=== PATIENT | female | born 1975 | race African-American/Black ===

== ENCOUNTER 2018-04-24 14:20 | Inpatient (IN) | END 2018-04-26 16:30 | disposition home or self-care (01) | DRG 282 ==

== ENCOUNTER 2018-08-12 12:11 | Observation (INO) | END 2018-08-13 16:50 | disposition home or self-care (01) ==

== ENCOUNTER 2019-01-10 09:13 | Emergency (ER) | payer OTHER ==
[~2019-01-10] VITALS: Ht 165.1 cm; Wt 61.4 kg
[~2019-01-10 09:13] MED LIST: ALPR1TAB7 PO; ARIP15TA3 PO; ASPI-817 PO; ISOS30TA67 PO; OXYC-279 PO; TRAZ150T65 PO
[2019-01-10 09:15] VITALS: Ht 165.1 cm; Wt 61.4 kg
[2019-01-10] MEDS ORDERED: NITROGLYCERIN 2% 1 GM OINT PKT TD STA (09:30)
[2019-01-10] MEDS ORDERED: ASPIRIN 81 MG TAB PO STA (09:30)
[2019-01-10] MEDS ORDERED: LORAZEPAM 2 MG INJ IV STA (09:30)
[2019-01-10] MEDS ORDERED: NITROGLYCERIN (SL) 0.4 MG TAB SL PRN (09:30)
[2019-01-10] MEDS ORDERED: morphine 4 MG/ML VIAL IV STA (10:21)
[2019-01-10] MEDS ORDERED: NITR-58 PO (10:53)
[2019-01-10] MEDS ORDERED: IBUP-1542 PO (10:53)
--- NOTE | 2019-01-10 10:56 | ERD ---
ER Documentation Chief Complaint Chief Complaint BIB RESCUE. SHARP CHEST PAIN RADIATING L ARM+ LLQ ABDOMINAL PAIN SINCE AM. HPI Patient is a 43-year-old female with coronary disease who presents with chest pain and abdominal pain. The patient was brought in by ambulance. She said that she had a transfusion 11 days ago. She is complaining of yellowish discharge from the vagina. She just had a cyst and fibroid removal while she was admitted. She denies being sexually active at this time. She said that she has had light vaginal bleeding. She does have a primary doctor but does not remember the name of the buttoner. ROS All systems reviewed and are negative except as per history of present illness. Medications Home Meds Active Scripts Nitrofurantoin Monohyd Macrocr* (Macrobid*) 100 Mg Capsr, 100 MG PO BID for 7 Days, CAP Prov:ROSA M DAVIS MD 01/10/19 Ibuprofen* (Motrin*) 600 Mg Tab, 600 MG PO Q6H PRN for PAIN AND OR ELEVATED TEMP, #30 TAB Prov:ROSA M DAVIS MD 01/10/19 Oxycodone HCl/Acetaminophen (Percocet 5-325 mg Tablet) 1 Each Tablet, 1 EACH PO Q6 for 5 Days, #20 TAB Prov:MIGUEL PAYNE MD 12/20/18 Aspirin* (Aspirin* EC) 81 Mg Tablet.dr, 81 MG PO DAILY for 90 Days, #90 TAB 4 Refills Prov:LANDON RUSSO MD 04/26/18 Reported Medications Isosorbide Mononitrate* (Isosorbide Mononitrate*) 30 Mg Tab.er.24h, 30 MG PO DAILY 12/19/18 Alprazolam* (Alprazolam*) 1 Mg Tablet, 1 MG PO DAILY PRN for ANXIETY, TAB 12/19/18 Aripiprazole* (Abilify*) 15 Mg Tablet, 15 MG PO DAILY, #30 TAB 04/24/18 Trazodone Hcl* (Trazodone Hcl*) 150 Mg Tablet, 250 MG PO QHS, #30 TAB 04/24/18 Allergies Allergies: Coded Allergies: Penicillins (Verified Allergy, Intermediate, 01/10/19) PMhx/Soc History of Surgery: Yes (GALLBLADDER REMOVED, 2015, APPENDECTOMY 2015, FIBROID REMOVED 2014) Anesthesia Reaction: No Hx Neurological Disorder: No Hx Respiratory Disorders: Yes (ASTHMA) Hx Cardiac Disorders: Yes (HTN, HX OF HEART ATTACK 04/2018) Hx Psychiatric Problems: Yes (BIPOLAR, ANXIETY, PTSD, DEPRESSION) Hx Miscellaneous Medical Probl: Yes (ENDOMETRIOSIS) Hx Alcohol Use: Yes (OCCASIONALLY) Hx Substance Use: No Hx Tobacco Use: Yes (OCCASIONAL) Smoking Status: Former smoker FmHx Family History: diabetes Physical Exam Vitals Vital Signs Date Temp Pulse Resp B/P (MAP) Pulse Ox O2 O2 Flow FiO2 Time Delivery Rate 01/10/19 72 18 98/70 (79) 100 Room Air 10:38 01/10/19 70 18 104/70 100 Room Air 10:00 (81) 01/10/19 68 18 122/74 100 Room Air 09:20 (90) 01/10/19 98.3 76 18 122/74 100 09:15 (90) Physical Exam Const: Moderate distress secondary to pain Head: Atraumatic Eyes: Normal Conjunctiva ENT: Normal External Ears, Nose and Mouth. Neck: Full range of motion. No meningismus. Resp: Clear to auscultation bilaterally Cardio: Regular rate and rhythm, no murmurs Abd: Soft, diffuse tenderness to palpation without rebound or guarding Back: No midline or flank tenderness Ext: No cyanosis, or edema Neur: Awake and alert Psych: Normal Mood and Affect Result Diagram: 01/10/1993801/10/19 0939 Results 24 hrs Laboratory Tests Test 01/10/19 09:39 01/10/19 10:00 White Blood Count 7.1 10^3/ul Red Blood Count 4.33 10^6/ul Hemoglobin 9.8 g/dl Hematocrit 33.6 % Mean Corpuscular Volume 77.6 fl Mean Corpuscular Hemoglobin 22.6 pg Mean Corpuscular Hemoglobin Concent 29.2 g/dl Red Cell Distribution Width 21.3 % Platelet Count 333 10^3/UL Mean Platelet Volume 10.1 fl Immature Granulocytes % 0.700 % Neutrophils % 62.9 % Lymphocytes % 23.4 % Monocytes % 9.9 % Eosinophils % 2.5 % Basophils % 0.6 % Nucleated Red Blood Cells % 0.0 /100WBC Immature Granulocytes # 0.050 10^3/ul Neutrophils # 4.5 10^3/ul Lymphocytes # 1.7 10^3/ul Monocytes # 0.7 10^3/ul Eosinophils # 0.2 10^3/ul Basophils # 0.0 10^3/ul Nucleated Red Blood Cells # 0.0 10^3/ul Sodium Level 137 mmol/L Potassium Level 4.4 mmol/L Chloride Level 106 mmol/L Carbon Dioxide Level 20 mmol/L Anion Gap 11 Blood Urea Nitrogen 12 mg/dl Creatinine 0.68 mg/dl Est Glomerular Filtrat Rate mL/min > 60 mL/min Glucose Level 83 mg/dl Calcium Level 9.3 mg/dl Total Bilirubin 0.3 mg/dl Direct Bilirubin 0.00 mg/dl Indirect Bilirubin 0.3 mg/dl Aspartate Amino Transf (AST/SGOT) 26 IU/L Alanine Aminotransferase (ALT/SGPT) 33 IU/L Alkaline Phosphatase 95 IU/L Troponin I < 0.012 ng/ml Total Protein 7.9 g/dl Albumin 4.3 g/dl Globulin 3.60 g/dl Albumin/Globulin Ratio 1.19 Urine Color YELLOW Urine Clarity SLIGHTLY CLOUDY Urine pH 7.0 Urine Specific [place] 1.010 Urine Ketones NEGATIVE mg/dL Urine Nitrite NEGATIVE mg/dL Urine Bilirubin NEGATIVE mg/dL Urine Urobilinogen NEGATIVE mg/dL Urine Leukocyte Esterase TRACE Clare/ul Urine Microscopic RBC 4 /HPF Urine Microscopic WBC 7 /HPF Urine Squamous Epithelial Cells FEW /HPF Urine Bacteria FEW /HPF Urine Hemoglobin 3+ mg/dL Urine Glucose NEGATIVE mg/dL Urine Total Protein NEGATIVE mg/dl Current Medications Medications Dose Sig/Ji Start Time Status Last (Trade) Ordered Route PRN Stop Time Admin Dose Reason Admin Aspirin 162 mg ONCE STAT 01/10/19 DC 01/10/19 (Aspirin) PO 09:30 09:45 01/10/19 09:32 1 inch ONCE STAT 01/10/19 DC 01/10/19 Nitroglycerin TD 09:30 09:51 01/10/19 09:32 (Nitroglyceri n 2% Oint) 1 tab Q5M UP TO 3 01/10/19 01/10/19 Nitroglycerin DOSES PRN 09:30 09:50 SL .CHEST (Nitroglyceri PAIN n (Sl Tab) 0.4 Mg) Lorazepam 1 mg ONCE STAT 01/10/19 DC 01/10/19 (Ativan) IV 09:30 09:57 01/10/19 09:32 Morphine 4 mg ONCE STAT 01/10/19 DC 01/10/19 Sulfate IV 10:21 10:33 (morphine) 01/10/19 10:22 25 mg ONCE ONCE 01/10/19 DC 01/10/19 Diphenhydrami IV 11:00 10:45 ne HCl 01/10/19 11:01 (Benadryl) Ketorolac 30 mg ONCE STAT 01/10/19 DC 01/10/19 Tromethamine IV 11:10 11:31 (Toradol) 01/10/19 11:11 Procedures/MDM EKG read by me: Rate/Rhythm: Regular rate and rhythm at a rate of 81 Intervals: Normal Impression: No evidence of ischemia or arrhythmia Chest x-ray negative per radiology. Patient is a 43-year-old female who presents with chest pain and abdominal pain. Laboratory studies show mild anemia with a hemoglobin of 9.8 but she does not need transfusion. Other laboratory studies are basically negative. Troponin is negative. Chest x-ray shows no sign of pneumonia or pneumothorax. At this point I doubt acute coronary syndrome, pneumonia, pneumothorax, pulmonary embolism, or aortic dissection. I doubt serious intra-abdominal process as well. The patient is requesting Dilaudid at this time and I believe there may be some drug-seeking behavior. She has mild cystitis will be treated with Macrobid. She will be discharged with ibuprofen for pain. She can return for any worsening symptoms. She should follow-up with her primary doctor within 24- 48 hours for reevaluation. Departure Diagnosis: Primary Impression: Cystitis Additional Impressions: Anemia Anemia type: unspecified type Qualified Codes: D64.9 - Anemia, unspecified Chest pain Chest pain type: unspecified Qualified Codes: R07.9 - Chest pain, unspecified Condition: Fair Patient Instructions: Anemia, Cystitis, Chest Pain, Uncertain Cause Referrals: Your doctor Additional Instructions: Call your primary care doctor TOMORROW for an appointment during the next 1-2 days.See the doctor sooner or return here if your condition worsens before your appointment time. ROSA M DAVIS MD Jan 10, 2019 10:56
[2019-01-10] MEDS ORDERED: DIPHENHYDRAMINE 50 MG INJ IV ONE (11:00)
[2019-01-10] MEDS ORDERED: KETOROLAC 30 MG INJ IV STA (11:10)
[2019-01-10 11:30] VITALS: BP 102/75; PULSE 69; RESP 18
== END 2019-01-10 12:07 | disposition home or self-care (01) ==
LOC: E/R 09:13
DX: N30.90 Cystitis, unspecified without hematuria (principal); D64.9 Anemia, unspecified; J45.909 Unspecified asthma, uncomplicated; I25.10 Atherosclerotic heart disease of native coronary artery without angina pectoris; I10 Essential (primary) hypertension; Z79.82 Long term (current) use of aspirin; Z87.891 Personal history of nicotine dependence
CPT/HCPCS: 36415; 71045; 80053; 81001; 84484; 85025; 86850; 86900; 86901; 93005; 96374; 96375; J1200; J1885; J2060; J2270; Z7502; Z7610

== ENCOUNTER 2019-04-24 12:42 | Emergency (ER) | payer OTHER ==
[~2019-04-24] VITALS: Ht 165.1 cm; Wt 72.0 kg
[~2019-04-24 12:42] MED LIST changes: +IBUP-1542 PO; +NITR-58 PO
[2019-04-24 12:45] VITALS: Ht 165.1 cm; Wt 72.0 kg
--- NOTE | 2019-04-24 14:52 | ERD ---
ER Documentation Chief Complaint Chief Complaint abdominal pain HPI The patient is a 43-year-old female, presenting to the ER because of intermittent left-sided abdominal pain for 1 week, had similar symptoms previously, with diarrhea, denies hematochezia/hematemesis, dysuria. She denies fever, chills, neck pain, chest pain, dyspnea. She smokes and drinks socially, denies illicit drug Past medical history: Depression, anxiety, asthma hypertension, CAD, bipolar, PTSD Past surgical history: Cholecystectomy, appendectomy, fibroid surgery ROS All systems reviewed and are negative except as per history of present illness. Medications Home Meds Active Scripts Ibuprofen* (Motrin*) 600 Mg Tab, 600 MG PO Q6H PRN for PAIN, #20 TAB Prov:DEANN SEARS MD 04/24/19 Loperamide Hcl* (Imodium*) 2 Mg Capsule, 2 MG PO .AFTER EA LOOSE BM PRN for DIARRHEA, #10 TAB Prov:DEANN SEARS MD 04/24/19 Discontinued Reported Medications Isosorbide Mononitrate* (Isosorbide Mononitrate*) 30 Mg Tab.er.24h, 30 MG PO DAILY 12/19/18 Alprazolam* (Alprazolam*) 1 Mg Tablet, 1 MG PO DAILY PRN for ANXIETY, TAB 12/19/18 Aripiprazole* (Abilify*) 15 Mg Tablet, 15 MG PO DAILY, #30 TAB 04/24/18 Trazodone Hcl* (Trazodone Hcl*) 150 Mg Tablet, 250 MG PO QHS, #30 TAB 04/24/18 Discontinued Scripts Nitrofurantoin Monohyd Macrocr* (Macrobid*) 100 Mg Capsr, 100 MG PO BID for 7 Days, CAP Prov:ROSA M DAVIS MD 01/10/19 Ibuprofen* (Motrin*) 600 Mg Tab, 600 MG PO Q6H PRN for PAIN AND OR ELEVATED TEMP, #30 TAB Prov:ROSA M DAVIS MD 01/10/19 Oxycodone HCl/Acetaminophen (Percocet 5-325 mg Tablet) 1 Each Tablet, 1 EACH PO Q6 for 5 Days, #20 TAB Prov:MIGUEL PAYNE MD 12/20/18 Aspirin* (Aspirin* EC) 81 Mg Tablet.dr, 81 MG PO DAILY for 90 Days, #90 TAB 4 Refills Prov:LANDON RUSSO MD 04/26/18 Allergies Allergies: Coded Allergies: Penicillins (Verified Allergy, Intermediate, 04/24/19) PMhx/Soc History of Surgery: Yes (GALLBLADDER REMOVED, 2016, APPENDECTOMY 2016, FIBROID REMOVED 2014) Anesthesia Reaction: No Hx Neurological Disorder: No Hx Respiratory Disorders: Yes (ASTHMA) Hx Cardiac Disorders: Yes (HTN, HX OF HEART ATTACK 04/2018) Hx Psychiatric Problems: Yes (BIPOLAR, ANXIETY, PTSD, DEPRESSION) Hx Miscellaneous Medical Probl: Yes (ENDOMETRIOSIS) Hx Alcohol Use: Yes (OCCASIONALLY) Hx Substance Use: No Hx Tobacco Use: Yes (OCCASIONAL) Physical Exam Vitals Vital Signs Date Temp Pulse Resp B/P (MAP) Pulse Ox O2 O2 Flow FiO2 Time Delivery Rate 04/24/19 97.9 66 18 117/89 100 Room Air 17:16 (98) 04/24/19 98.7 74 18 124/71 100 12:45 (88) Physical Exam Const: No acute distress. Head: Atraumatic. Eyes: Normal Conjunctiva. ENT: Normal External Ears, Nose and Mouth. Neck: Full range of motion. No meningismus. Resp: Clear to auscultation bilaterally. Cardio: Regular rate and rhythm. Abd: Soft, non distended, normal bowel sounds, mild left-sided abdominal tenderness, no rigidity/rebound/CVA tenderness Skin: No petechiae or rashes. Back: No midline or flank tenderness. Ext: No cyanosis, or edema. Neur: Awake and alert. No focal deficit Psych: Normal Mood and Affect. Result Diagram: 04/24/19 1540 04/24/19 1540 Results 24 hrs Laboratory Tests Test 04/24/19 15:08 04/24/19 15:40 Bedside Urine pH (LAB) 6.0 Bedside Urine Protein (LAB) Negative Bedside Urine Glucose (UA) Negative Bedside Urine Ketones (LAB) Negative Bedside Urine Blood Trace-intact Bedside Urine Nitrite (LAB) Negative Bedside Urine Leukocyte Esterase (L Trace POC Beta HCG, Qualitative NEGATIVE White Blood Count 9.1 10^3/ul Red Blood Count 4.60 10^6/ul Hemoglobin 11.3 g/dl Hematocrit 37.9 % Mean Corpuscular Volume 82.4 fl Mean Corpuscular Hemoglobin 24.6 pg Mean Corpuscular Hemoglobin Concent 29.8 g/dl Red Cell Distribution Width 14.7 % Platelet Count 353 10^3/UL Mean Platelet Volume 10.1 fl Immature Granulocytes % 0.500 % Neutrophils % 61.5 % Lymphocytes % 25.7 % Monocytes % 9.3 % Eosinophils % 2.5 % Basophils % 0.5 % Nucleated Red Blood Cells % 0.0 /100WBC Immature Granulocytes # 0.050 10^3/ul Neutrophils # 5.6 10^3/ul Lymphocytes # 2.4 10^3/ul Monocytes # 0.9 10^3/ul Eosinophils # 0.2 10^3/ul Basophils # 0.1 10^3/ul Nucleated Red Blood Cells # 0.0 10^3/ul Sodium Level 141 mmol/L Potassium Level 4.0 mmol/L Chloride Level 109 mmol/L Carbon Dioxide Level 23 mmol/L Anion Gap 9 Blood Urea Nitrogen 12 mg/dl Creatinine 0.61 mg/dl Est Glomerular Filtrat Rate mL/min > 60 mL/min Glucose Level 88 mg/dl Calcium Level 9.4 mg/dl Total Bilirubin 0.6 mg/dl Direct Bilirubin 0.00 mg/dl Indirect Bilirubin 0.6 mg/dl Aspartate Amino Transf (AST/SGOT) 22 IU/L Alanine Aminotransferase (ALT/SGPT) 29 IU/L Alkaline Phosphatase 81 IU/L Total Protein 8.3 g/dl Albumin 4.4 g/dl Globulin 3.90 g/dl Albumin/Globulin Ratio 1.12 Lipase 117 U/L Current Medications Medications Dose Sig/Ji Start Time Status Last (Trade) Ordered Route PRN Stop Time Admin Dose Reason Admin Ketorolac 30 mg ONCE STAT 04/24/19 DC 04/24/19 Tromethamine IV 15:33 15:47 (Toradol) 04/24/19 15:40 Procedures/[place] [address] Radiology Main Line: [phone] DIAGNOSTIC IMAGING REPORT Patient: SHIKHA CORREA : 1975 Age: 43 Sex: F MR #: [id number] DOS: 04/24/19 1456 Ordering MD: DEANN SEARS MD Location: E/R Room/Bed: PROCEDURE: CT Abdomen and Pelvis without contrast. CLINICAL INDICATION: Abdominal pain. TECHNIQUE: CT scan of the abdomen and pelvis without contrast was performed on a multidetector high-resolution CT scanner. The patient was scanned without intravenous contrast. Coronal and sagittal reformatted images were obtained from the axial source images. Images were reviewed on a high-resolution PACS workstation. One or more of the following dose reduction techniques were used: Automated exposure control, adjustment of the mA and/or kV according to patient size, use of iterative reconstruction technique. DICOM images are available. The total exam CTDI equals 8.81 mGy and the total exam DLP equals 497.33 mGy-cm. COMPARISON: CT from 03/02/2019. FINDINGS: CT ABDOMEN: Visualized lung bases: No significant infiltrate or pleural/pericardial effusion. The heart size is normal. Liver: Unchanged 1.4 x 0.9 cm hypodense lesion in the right hepatic lobe. The liver is normal in size and demonstrates normal attenuation. No evidence of suspicious solid hepatic mass or intrahepatic ductal dilatation. Gallbladder and bile ducts: The gallbladder is surgically absent. The intrahepatic biliary tree is unremarkable. Spleen: Unremarkable. Pancreas: Unremarkable. No ductal dilatation, mass, or peripancreatic stranding. Adrenal glands: Unremarkable. Kidneys: No hydronephrosis, stones, or solid lesions seen. Vasculature: No abdominal aortic aneurysm. Negative IVC. Lymph nodes: No adenopathy. GI: The appendix is surgically absent. Negative terminal ileum and rectum. No evidence of obstruction. Negative sigmoid colon. Peritoneal cavity: No free fluid or free air. CT PELVIS: : Normal appearing bladder, distal ureters and ureterovesiculal junctions. Enlarged heterogeneous uterus is again noted, similar appearance compared to the prior exam. Peritoneal cavity: Small amount of nonspecific pelvic free fluid is present. No free air. Lymph nodes: No adenopathy. Osseous structures: No acute osseous injury. A 7 mm sclerotic lesion in the right sacral ala is unchanged and likely represents a bone island. Other: None. IMPRESSION: 1. No evidence of acute abdominopelvic inflammatory process, mass or lymphadenopathy. 2. Enlarged heterogeneous uterus, likely secondary to fibroids, similar to prior exam. 3. Small amount of pelvic free fluid, likely physiologic in nature. 4. Status post cholecystectomy. 5. Indeterminate 1.4 x 0.9 cm hypodense right hepatic lobe lesion, too small to characterize but likely a cyst or hemangioma. RPTAT: JJ .Dmitri Dalton MD, MD Date Time Electronically viewed and signed by .Dmitri Dalton MD, MD on 04/24/2019 16:16 .A/ CC: DEANN SEARS MD [id number] MEDICAL MAKING DECISION: The patient is a 43-year-old female, presenting with acute abdominal pain of unclear etiology, acute diarrhea. She was treated with Toradol 30 mg IV for pain with good response, is above outpatient follow-up The differential diagnoses considered include but are not limited to renal colic, adhesion, choledocholithiasis, cholangitis, pancreatitis, hepatitis, allan ritis, peptic ulcer disease, gastric ulcer, cystitis, diverticulitis, partial small bowel obstruction. Departure Diagnosis: Primary Impression: Abdominal pain Additional Impressions: Diarrhea Fibroid Anemia Condition: Good Comments She was discharge with Motrin and Imodium I discussed the findings with the patient. I advised the patient to follow-up with the primary physician in about 2-3 days, sooner if needed and return if any concern. Disclaimer: Inadvertent spelling and grammatical errors are likely due to EHR/dictation software use and do not reflect on the overall quality of patient care. Also, please note that the electronic time recorded on this note does not necessarily reflect the actual time of the patient encounter. DEANN SEARS MD Apr 24, 2019 14:52
[2019-04-24] MEDS ORDERED: KETOROLAC 30 MG INJ IV STA (15:33)
[2019-04-24] MEDS ORDERED: LOPE2CAP PO (17:12)
[2019-04-24] MEDS ORDERED: IBUP-1542 PO (17:12)
[2019-04-24 17:16] VITALS: BP 117/89; PULSE 66; RESP 18
== END 2019-04-24 17:24 | disposition home or self-care (01) ==
LOC: E/R 12:42
DX: D25.9 Leiomyoma of uterus, unspecified (principal); I10 Essential (primary) hypertension; J45.909 Unspecified asthma, uncomplicated; I25.10 Atherosclerotic heart disease of native coronary artery without angina pectoris; D64.9 Anemia, unspecified; R19.7 Diarrhea, unspecified; Z87.891 Personal history of nicotine dependence
CPT/HCPCS: 74176; 80053; 81003; 81025; 83690; 85025; 96374; J1885; Z7502

== ENCOUNTER 2019-06-14 20:18 | Emergency (ER) | payer OTHER ==
[~2019-06-14] VITALS: Ht 167.6 cm; Wt 69.5 kg
[~2019-06-14 20:18] MED LIST changes: +ACET500C5 PO; -ALPR1TAB7 PO; -ARIP15TA3 PO; -ASPI-817 PO; +FAMO-96 PO; -ISOS30TA67 PO; +LOPE2CAP PO; -NITR-58 PO; +ONDA4TAB14 PO; -OXYC-279 PO; -TRAZ150T65 PO
[2019-06-14 20:27] VITALS: Ht 167.6 cm; Wt 69.5 kg
[2019-06-14 23:00] VITALS: BP 126/81; PULSE 73; RESP 16
== END 2019-06-14 23:00 | disposition home or self-care (01) ==
LOC: FTE 20:18
DX: B34.9 Viral infection, unspecified (principal); I10 Essential (primary) hypertension; J45.909 Unspecified asthma, uncomplicated; F17.210 Nicotine dependence, cigarettes, uncomplicated
CPT/HCPCS: 80053; 81001; 81025; 82150; 83690; 84703; 85025; 87086; Z7610; 99283

== ENCOUNTER 2019-09-11 16:49 | Inpatient (IN) | payer OTHER ==
[~2019-09-11] VITALS: Ht 165.1 cm; Wt 71.7 kg
[~2019-09-11 16:49] MED LIST changes: +FER325 PO; +GABA300C16 PO; +TRAZ300T2 PO
[2019-09-11] MEDS ORDERED: ONDANSETRON 4 MG INJ IV STA (22:38)
[2019-09-11] MEDS ORDERED: LACTATED RINGER'S 1,000 ML IV STA (22:38)
[2019-09-11] MEDS ORDERED: HYDROmorphONE 1 MG/ML SYG IV STA (22:38)
[2019-09-11] MEDS ORDERED: HYDROmorphONE 2 MG/ML SYG IV STA (23:58)
[2019-09-12 01:23] VITALS: Ht 165.1 cm; Wt 71.7 kg
[2019-09-12 01:25] VITALS: BP 127/88; PULSE 85; RESP 18
[2019-09-12] MEDS ORDERED: HYDROCODONE/APAP (5/325) TAB PO PRN ×2 (03:00)
[2019-09-12] MEDS ORDERED: ALBUTEROL/IPRATROPIUM (NEB) 3 ML AMP HHN PRN (03:00)
[2019-09-12] MEDS ORDERED: NACL 0.9% 3 ML SYG IV SCH (03:00)
[2019-09-12] MEDS ORDERED: ONDANSETRON 4 MG INJ IV PRN (03:00)
[2019-09-12] MEDS ORDERED: ACETAMINOPHEN 325 MG TAB PO PRN (03:00)
[2019-09-12] MEDS: GABAPENTIN 300 MG CAP PO SCH ×3 (03:00→22:45)
[2019-09-12 07:25] VITALS: BP 96/60; PULSE 89; RESP 18
[2019-09-12] MEDS ORDERED: FERROUS SULFATE (EC) 325 MG TAB PO SCH (09:00)
[2019-09-12] MEDS: HEPARIN 5,000 UNIT/1 ML VIAL SC SCH ×2 (09:32→22:46)
[2019-09-12] MEDS ORDERED: IOHEXOL 300MG/ML 150 ML BTL ONE ×2 (10:28→21:38)
[2019-09-12] MEDS ORDERED: SOD CHLORIDE 0.9% 100 ML ONE ×2 (10:28→21:38)
[2019-09-12 13:57] VITALS: BP 99/63; PULSE 68; RESP 18
[2019-09-12] MEDS ORDERED: NITROGLYCERIN (SL) 0.4 MG TAB SL PRN (15:00)
[2019-09-12] MEDS: CLOPIDOGREL 75 MG TAB PO SCH (15:05)
[2019-09-12] MEDS: ASPIRIN 81 MG TAB PO SCH (15:05)
[2019-09-12] MEDS: LORAZEPAM 1 MG TAB PO PRN (15:05)
[2019-09-12 19:41] VITALS: BP 91/59; PULSE 77; RESP 18
[2019-09-12] MEDS ORDERED: traZODone 100 MG TAB PO SCH (21:00)
[2019-09-13 01:46] VITALS: BP 97/61; PULSE 71; RESP 18
[2019-09-13] MEDS: LORAZEPAM 1 MG TAB PO PRN (03:23)
[2019-09-13] MEDS ORDERED: KETOROLAC 30 MG INJ IV STA (03:30)
[2019-09-13 08:41] VITALS: BP 97/62; PULSE 141; RESP 18
[2019-09-13] MEDS ORDERED: IBUPROFEN 600 MG TAB PO PRN (09:00)
[2019-09-13] MEDS: CLOPIDOGREL 75 MG TAB PO SCH (09:37)
[2019-09-13] MEDS: GABAPENTIN 300 MG CAP PO SCH (09:37)
[2019-09-13] MEDS: ASPIRIN 81 MG TAB PO SCH (09:37)
[2019-09-13] MEDS: HEPARIN 5,000 UNIT/1 ML VIAL SC SCH (09:38)
[2019-09-13] MEDS ORDERED: KETOROLAC 15 MG INJ IV PRN (10:00)
[2019-09-13] MEDS ORDERED: IBUPROFEN 400 MG TAB PO PRN (16:30)
== END 2019-09-13 17:30 | disposition home or self-care (01) | DRG 845 ==
LOC: E/R 16:49 → MS1 23:43
PROVIDERS: ADMIT Internal Medicine; ATTEND Internal Medicine
DX: D49.89 Neoplasm of unspecified behavior of other specified sites (principal); I11.0 Hypertensive heart disease with heart failure; I50.9 Heart failure, unspecified; D50.9 Iron deficiency anemia, unspecified; F32.9 Major depressive disorder, single episode, unspecified; F17.200 Nicotine dependence, unspecified, uncomplicated; F41.9 Anxiety disorder, unspecified; R07.9 Chest pain, unspecified; I25.10 Atherosclerotic heart disease of native coronary artery without angina pectoris; J45.909 Unspecified asthma, uncomplicated; F43.10 Post-traumatic stress disorder, unspecified; N80.9 Endometriosis, unspecified; G89.29 Other chronic pain; I25.2 Old myocardial infarction; Z79.82 Long term (current) use of aspirin; Z95.5 Presence of coronary angioplasty implant and graft; Z90.49 Acquired absence of other specified parts of digestive tract
CPT/HCPCS: 36415; 70491; 71045; 71260; 80048; 80053; 80061; 80307; 81003; 81025; 82728; 83036; 83540; 83690; 83735; 84100; 84436; 84479; 84484; 85025; 85610; 85730; 93005; 96374; 96375; J1170; J1644; J1885; J2405; J7120; Q9967